=== PATIENT | male | born 2000 | race African-American/Black ===

== ENCOUNTER 2018-07-09 12:58 | Emergency (ER) | payer OTHER ==
[~2018-07-09] VITALS: Ht 175.3 cm; Wt 62.3 kg
[2018-07-09 12:59] VITALS: BP 133/69
[2018-07-09] MEDS ORDERED: MELA3TAB49 PO (13:04)
[2018-07-09 15:57] LABS: CHLAMYDIA DNA AMPLIFICATION NEGATIVE (NEGATIVE); GC DNA AMPLIFICATION NEGATIVE (NEGATIVE)
== END 2018-07-09 14:19 | disposition home or self-care (01) ==
LOC: M ED 12:58
DX: Z11.3 Encounter for screening for infections with a predominantly sexual mode of transmission (principal); Z79.899 Other long term (current) drug therapy

== ENCOUNTER 2018-08-12 20:52 | Emergency (ER) | payer OTHER ==
[~2018-08-12] VITALS: Ht 175.3 cm; Wt 62.3 kg
[~2018-08-12 20:52] MED LIST: MELA3TAB49 PO
[2018-08-12] MEDS ORDERED: ACETAMINOPHEN 325 MG TAB PO ONE (22:00)
[2018-08-12 22:46] VITALS: BP 129/72
== END 2018-08-12 22:48 | disposition home or self-care (01) ==
LOC: M ED 20:52
DX: S01.81XA Laceration without foreign body of other part of head, initial encounter (principal); S80.11XA Contusion of right lower leg, initial encounter; W50.0XXA Accidental hit or strike by another person, initial encounter; Y92.830 Public park as the place of occurrence of the external cause; Y93.67 Activity, basketball; Y99.9 Unspecified external cause status; Z79.899 Other long term (current) drug therapy